=== PATIENT | male | born 1950 | race Caucasian/White ===

== ENCOUNTER 2022-02-06 02:01 | Emergency (ER) | payer SELFPAY ==
[2022-02-06] MEDS ORDERED: LEVALBUTEROL 1.25 MG/3 ML NEB ONE ×2 (02:18→02:31)
[2022-02-06] MEDS ORDERED: METHYLPREDNISOLONE 125 MG INJ ONE (02:31)
[2022-02-06 02:34] LABS: Arterial Blood Carboxyhemoglob 2.2 % (0-1.5); Blood Gas Oxyhemoglobin 95.9 % (94-97); Blood O2 Saturation 99.2 % (92-98.5)
[2022-02-06 02:55] LABS: Absolute Lymphocytes (CBC) 1.6 K/uL (0.7-4.9); Hematocrit 42.9 % (39.6-49.0); Lymphocytes % 27.3 % (15.3-44.8); MPV 7.6 fL (7.6-11.3)
[2022-02-06 03:01] LABS: Protime INR 0.91
[2022-02-06 03:15] LABS: Albumin 3.9 g/dL (3.4-5.0); Bilirubin Direct 0.2 mg/dL (0-0.2); Bilirubin Total 0.4 mg/dL (0.2-1.0); Protein, Total 7.4 g/dL (6.4-8.2)
[2022-02-06] MEDS ORDERED: FUROSEMIDE 40 MG/4 ML VIAL ONE (03:41)
[2022-02-06] MEDS ORDERED: Levofloxacin500mg IV 500 MG/100 ML BAG IV ONE (03:41)
[2022-02-06] MEDS ORDERED: MORPHINE 4 MG/ML SYR ONE (03:41)
[2022-02-06] MEDS ORDERED: ENOXAPARIN 100 MG/ML SYR SQ ONE (03:41)
[2022-02-06] MEDS ORDERED: NITROGLYCERIN 1 GM PKT TD ONE ×2 (04:06→04:17)
--- NOTE | 2022-02-06 05:10 | P.HP ---
Certification for Inpatient Patient admitted to: Inpatient With expected LOS: >2 Midnights Patient will require the following post-hospital care: None Practitioner: I am a practitioner with admitting privileges, knowledge of patient current condition, hospital course, and medical plan of care. Services: Services provided to patient in accordance with Admission requirements found in Title 42 Section 412.3 of the Code of Federal Regulations Patient History Date of Service: 02/06/22 Reason for admission: NSTEMI History of Present Illness: 71-year-old male with no known past medical history presents emergency room for chest pain, respiratory distress he reports that he was eating a for bed when he began to experience severe chest pain he described as tightness nonradiating with associated shortness of breath he presented to the emergency department respiratory stress was placed on BiPAP. Rest of his work-up revealed labs significant for elevated troponin, BNP, glucose, lactic acidosis he does have nonpitting edema of the lower extremities which she reports has been going on for "some time". Patient still with active chest pain has been given nitroglycerin, morphine, Lovenox in the emergency department, he was weaned off of BiPAP and is currently tolerating nasal cannula, currently pending CT PE protocol. ED prior wishes to admit for NSTEMI, chest pain - Past Medical/Surgical History -: None -: None Psychosocial/ Personal History: Lives at home with his - Family History Family History: Reviewed- Non-Contributory - Social History Smoking Status: Current every day smoker Counseled patient to stop smoking for: less than 10 minutes Smoking therapy provided: No Alcohol use: Yes CD- Drugs: No Caffeine use: Yes Place of Residence: Home Review of Systems 10-point ROS is otherwise unremarkable Respiratory: Shortness of Breath, SOB with Excertion Cardiovascular: Chest Pain, Edema Physical Examination - Physical Exam General: Alert, In no apparent distress, Oriented x3 HEENT: Atraumatic, PERRLA, Mucous membr. moist/pink, EOMI, Sclerae nonicteric Neck: Supple, No LAD, Without JVD or thyroid abnormality Respiratory: Crackles/rales Cardiovascular: Regular rate/rhythm, Normal S1 S2, Edema Capillary refill: <2 Seconds Gastrointestinal: Normal bowel sounds, No tenderness Musculoskeletal: No tenderness Integumentary: No rashes Neurological: Normal speech, Normal strength at 5/5 x4 extr, Normal tone, Normal affect - Studies Laboratory Data (last 24 hrs) 02/06/22 02:30: PT 10.0, INR 0.91, APTT 29.7 02/06/22 02:30: WBC 5.9, Hgb 14.6, Hct 42.9, Plt Count 223 02/06/22 02:30: Sodium 135 L, Potassium 4.0, BUN 14, Creatinine 1.15, Glucose 411 H*, Magnesium 2.0, Total Bilirubin 0.4, AST 33, ALT 25, Alkaline Phosphatase 138 H Microbiology Data (last 24 hrs): 02/06/22 02:33 Nasopharnyx Influenza Type A Antigen Screen - Final 02/06/22 02:33 Nasopharnyx Influenza Type B Antigen Screen - Final Assessment and Plan - Plan Assessment: Chest pain, NSTEMI Hyperglycemia suspect underlying diabetes mellitus type 2 Hypertension Plan: Chest pain, NSTEMI: Cardiology consulted, trend troponins likely some degree of CHF patient with edema of lower extremities elevated BNP given Lasix in the ER. Continue with aspirin, statin, Plavix, morphine/nitro, Lasix. Echocardiogram ordered. Appreciate further input from cardiology Hyperglycemia suspect underlying diabetes mellitus type 2: Initial glucose 411 patient denies any history of diabetes does not take any medications. Will obtain A1c placed on moderate sliding scale for time being. Hypertension: No known history suspect underlying primary hypertension we will provide with metoprolol adjust as needed. DVT PPX: Full dose Lovenox Code status: Full code Discharge Plan: Home Plan to discharge in: 72 Hours - Advance Directives Does patient have a Living Will: No Does patient have a Durable POA for Healthcare: No - Code Status/Comfort Care Code Status Assessed: Yes (Full code) Critical Care: No Time Spent Managing Pts Care (In Minutes): 55
[2022-02-06] MEDS ORDERED: INSULIN -REGULAR HUMAN 50 UNIT/0.5 ML ML ONE (05:12)
[2022-02-06] MEDS ORDERED: HYDROMORPHONE HCL 0.5 MG/0.5 ML INJ ONE (05:26)
[2022-02-06] MEDS ORDERED: ONDANSETRON 4 MG/2 ML VIAL ONE (05:26)
--- NOTE | 2022-02-06 05:28 | ER ---
Nurse's Notes [facility] Name: Austin Carranza Age: 71 yrs Sex: Male : 1950 Arrival Date: 02/06/2022 Time: 02:03 Bed 5 Private MD: Diagnosis: Subsequent non-ST elevation (NSTEMI) myocardial infarction;Acute pulmonary edema;Hypoxemia Presentation: 02/06 02:14 Chief complaint: Patient states: he started having difficulty breathing approx 2 hours bb ago with chest pain. Coronavirus screen: difficulty breathing, Client presents with at least one sign or symptom that may indicate coronavirus-19. Standard/surgical mask placed on the client. Ebola Screen: No symptoms or risks identified at this time. Initial Sepsis Screen: Does the patient meet any 2 criteria? No. Patient's initial sepsis screen is negative. Does the patient have a suspected source of infection? No. Patient's initial sepsis screen is negative. Risk Assessment: Do you want to hurt yourself or someone else? Patient reports no desire to harm self or others. Onset of symptoms was February 06, 2022. 02:14 Method Of Arrival: Wheelchair bb 02:14 Acuity: STEFFANY 2 bb Historical: - Allergies: 08:00 Levaquin; jl7 08:00 Morphine; jl7 - Home Meds: 02:15 None [Active]; bb - PMHx: 02:15 None; bb - PSHx: 02:15 None; bb - Immunization history:: Client reports receiving the 2nd dose of the Covid vaccine, Moderna. - Social history:: Smoking status: Patient reports the use of cigarette tobacco products, smokes one pack cigarettes per day. - Family history:: not pertinent. - Hospitalizations: : No recent hospitalization is reported. Assessment: 02:10 General: Appears distressed, uncomfortable, Behavior is cooperative, anxious. Pain: jb4 Complains of pain in chest Pain does not radiate. Pain currently is 10 out of 10 on a pain scale. Neuro: Level of Consciousness is awake, alert, obeys commands, Oriented to person, place, time, situation. Cardiovascular: Patient's skin is warm and dry. Rhythm is sinus tachycardia. Respiratory: Airway is patent Respiratory effort is even, labored, pursed lip, Respiratory pattern is symmetrical, tachypnea Breath sounds with wheezes bilaterally. GI: No signs and/or symptoms were reported involving the gastrointestinal system. : No signs and/or symptoms were reported regarding the genitourinary system. EENT: No signs and/or symptoms were reported regarding the EENT system. Derm: Skin is intact, Skin is pink, warm \T\ dry. 03:00 Reassessment: Patient appears in no apparent distress at this time. Patient and/or jb4 family updated on plan of care and expected duration. Pain level reassessed. Patient is alert, oriented x 3, equal unlabored respirations, skin warm/dry/pink. 04:00 Reassessment: Patient appears in no apparent distress at this time. Patient and/or jb4 family updated on plan of care and expected duration. Pain level reassessed. Patient is alert, oriented x 3, equal unlabored respirations, skin warm/dry/pink. 05:00 Reassessment: Patient appears in no apparent distress at this time. Patient and/or jb4 family updated on plan of care and expected duration. Pain level reassessed. Patient is alert, oriented x 3, equal unlabored respirations, skin warm/dry/pink. 05:48 Reassessment: Patient appears in no apparent distress at this time. Patient and/or jb4 family updated on plan of care and expected duration. Pain level reassessed. Patient is alert, oriented x 3, equal unlabored respirations, skin warm/dry/pink. Pt states pain decreased to a 1-2/10, reports feeling much better at this time. 07:10 Reassessment: Patient appears in no apparent distress at this time. No changes from 7 previously documented assessment. Patient and/or family updated on plan of care and expected duration. Pain level reassessed. Patient is alert, oriented x 3, equal unlabored respirations, skin warm/dry/pink. Patient states feeling better. Pain: Complains of pain in mid-sternal area Pain does not radiate. Pain currently is 2 out of 10 on a pain scale. 08:26 Reassessment: EMS at bedside to transport pt. jl7 Vital Signs: 02:10 Temp 98.1(TE); jb4 02:14 BP 165 / 117; Pulse 132; Resp 40 S; Pulse Ox 89% on R/A; Weight 97.52 kg (R); Height 6 bb ft. 1 in. (185.42 cm) (R); Pain 10/10; 03:15 BP 122 / 83; Pulse 98; Resp 23; Pulse Ox 98% on BiPAP; jb4 04:06 BP 130 / 82; Pulse 97; Resp 26; Pulse Ox 100% on BVM; jb4 05:30 BP 107 / 69; Pulse 88; Resp 20; Pulse Ox 95% on 3 lpm NC; jb4 06:30 BP 107 / 65; Pulse 86; Resp 16; Pulse Ox 95% on 3 lpm NC; jb4 07:25 BP 108 / 68; Pulse 77; Resp 15; Pulse Ox 96% ; Pain 2/10; jl7 08:26 BP 94 / 66; Pulse 75; Resp 15; Pulse Ox 97% ; jl7 02:14 Body Mass Index 28.37 (97.52 kg, 185.42 cm) bb ED Course: 02:03 Patient arrived in ED. bp1 02:05 Adan Disla MD is Attending Physician. rn 02:15 Triage completed. bb 02:15 Arm band placed on Patient placed in an exam room, on a stretcher, on oxygen, on bb cardiac rn, on pulse oximetry. Patient Bipap ordered. EKG completed in triage. Results shown to MD. EKG completed in triage. Results shown to MD. 02:23 Manuel Rose, RN is Primary Nurse. jb4 02:39 Inserted saline lock: 18 gauge in left wrist, using aseptic technique. Blood collected. ds4 05:28 initiated a transfer with Rupali Grover from [facility]. mw2 06:[address] Disla with the Doctor from [facility]. mw2 06:18 XRAY Chest (1 view) In Process Unspecified. EDMS 06:44 connected the hospitalist [employer] for [facility] with Dr. Disla for patient transfer mw2 consultation. 07:08 administrative approval given by Rupali Grover/ Patient has been accepted to [facility] 5th Floor A512/ Dr. Reaves has accepted the patient in transfer/ Report to be called to [phone]. Administered Medications: 04:13 Discontinued: LevaQUIN (levofloxacin) 500 mg 100 ml IVPB once over 60 mins jb4 02:26 Drug: Xopenex (levalbuterol) (3) 1.25 mg Route: Inhalation; jb4 07:00 Follow up: Response: No adverse reaction jl7 02:30 Drug: SOLU-Medrol (methylPrednisoLONE) 125 mg Route: IVP; Site: left forearm; jb4 07:00 Follow up: Response: No adverse reaction jl7 03:45 Drug: LevaQUIN (levofloxacin) 500 mg Volume: 100 ml; Route: IVPB; Infused Over: 60 jb4 mins; Site: left forearm; 04:10 Follow up: Response: Adverse reaction, Physician notified; IV Status: Order to jb4 discontinue infusion; IV Intake: 37ml 03:46 Drug: Lasix (furosemide) 40 mg Route: IVP; Site: left antecubital; jb4 07:00 Follow up: Response: No adverse reaction jl7 03:46 Drug: Lovenox (enoxaparin) 1 mg/kg Route: Sub-Q; Site: left upper abdomen; jb4 07:00 Follow up: Response: No adverse reaction jl7 03:47 Drug: morphine 4 mg Route: IVP; Infused Over: 4 mins; Site: left forearm; jb4 08:28 Follow up: Response: pt reported itching at IV site when medication was administered jl7 04:05 Drug: Nitro-Bid (nitroglycerin) Ointment 2 % 0.5 inches Route: Transdermal; Site: jb4 anterior chest wall; 04:14 Drug: Nitroglycerin Ointment 2 % 0.5 inches Route: Transdermal; Site: anterior chest jb4 wall; 05:12 Drug: Insulin Regular Human 10 units {Co-Signature: [email or web address] (Karime Seymour RN).} Route: jb4 Sub-Q; Site: abdomen; 05:12 Follow up: Response: No adverse reaction jb4 05:26 Drug: Dilaudid (HYDROmorphone) 0.5 mg Route: IVP; Site: left forearm; lg3 05:26 Follow up: Response: No adverse reaction lg3 05:28 Drug: Zofran (Ondansetron) 4 mg Route: IVP; Site: left forearm; lg3 05:28 Follow up: Response: No adverse reaction lg3 07:01 Drug: Aspirin Chewable Tablet 324 mg Route: PO; lg3 07:01 Follow up: Response: No adverse reaction lg3 07:38 Drug: Zosyn (piperacillin-tazobactam) 3.375 grams Route: IVPB; Infused Over: 60 mins; jl7 Site: left forearm; 08:27 Follow up: IV Status: Infusion continued upon transfer jl7 Medication: 08:26 VIS not applicable for this client. jl7 Intake: 04:10 IV: 37ml; Total: 37ml. jb4 Outcome: 05:27 ER care complete, transfer ordered by MD. espinosa 08:29 Patient left the ED. jl7 Signatures: Dispatcher [employer] EDMS Shani Omalley, RN RN bb Adan Disla MD MD rn Swanson, Donovan ds4 Manuel Rose RN RN jb4 Thalia Mccord RN RN jl7 Misti Santana 2 Jenna Jimenes Lacie, RN RN lg3 Ana Quinn RN lg3 Corrections: (The following items were deleted from the chart) 08:01 02:15 Allergies: No Known Allergies; atilio jlBraulio
--- NOTE | 2022-02-06 05:28 | EDPHYS ---
Physician Documentation [facility] Name: Austin Carranza Age: 71 yrs Sex: Male : 1950 Arrival Date: 02/06/2022 Time: 02:03 Bed 5 Private MD: ED Physician Adan Disla HPI: 02/06 03:04 This 71 yrs old Male presents to ER via Wheelchair with complaints of Breathing rn Difficulty. 03:05 The patient has shortness of breath at rest. Onset: The symptoms/episode began/occurred rn 2 hour(s) ago. Duration: The symptoms are continuous. The patient's shortness of breath is aggravated by nothing, is alleviated by nothing. Associated signs and symptoms: Pertinent positives: chest pain, non-productive cough, Pertinent negatives: fever, hemoptysis. Severity of symptoms: At their worst the symptoms were moderate in the emergency department the symptoms are unchanged. The patient has not experienced similar symptoms in the past. The patient has not recently seen a physician. states no PMH but doesn't go to doctor. + long time smoker. Pt reports chest pain and sob. Feels like not getting enough air. Doesn't feel ill. Denies fever. . Historical: - Allergies: 08:00 Levaquin; jl7 08:00 Morphine; jl7 - Home Meds: 02:15 None [Active]; bb - PMHx: 02:15 None; bb - PSHx: 02:15 None; bb - Immunization history:: Client reports receiving the 2nd dose of the Covid vaccine, Moderna. - Social history:: Smoking status: Patient reports the use of cigarette tobacco products, smokes one pack cigarettes per day. - Family history:: not pertinent. - Hospitalizations: : No recent hospitalization is reported. ROS: 03:05 Constitutional: Negative for fever, chills, and weight loss, Eyes: Negative for injury, rn pain, redness, and discharge, Neck: Negative for injury, pain, and swelling, Cardiovascular: + chest pain Respiratory: + sob and cough Abdomen/GI: Negative for abdominal pain, nausea, vomiting, diarrhea, and constipation, MS/Extremity: Negative for injury and deformity, Skin: Negative for injury, rash, and discoloration, Neuro: Negative for headache, weakness, numbness, tingling, and seizure. Exam: 03:05 Constitutional: This is a well developed, well nourished patient who is awake, alert, rn moderate respiratory distress Head/Face: Normocephalic, atraumatic. ENT: no stridor Cardiovascular: Tachycardic, regular Respiratory: Moderate tachypnea with 3-4 word sentences. No wheezing but crackles bilaterally. Abdomen/GI: soft, non-tender Skin: Warm, dry, no cyanosis MS/ Extremity: Pulses equal, no cyanosis. Neuro: Awake and alert, GCS 15 Vital Signs: 02:10 Temp 98.1(TE); jb4 02:14 BP 165 / 117; Pulse 132; Resp 40 S; Pulse Ox 89% on R/A; Weight 97.52 kg (R); Height 6 bb ft. 1 in. (185.42 cm) (R); Pain 10/10; 03:15 BP 122 / 83; Pulse 98; Resp 23; Pulse Ox 98% on BiPAP; jb4 04:06 BP 130 / 82; Pulse 97; Resp 26; Pulse Ox 100% on BVM; jb4 05:30 BP 107 / 69; Pulse 88; Resp 20; Pulse Ox 95% on 3 lpm NC; jb4 06:30 BP 107 / 65; Pulse 86; Resp 16; Pulse Ox 95% on 3 lpm NC; jb4 07:25 BP 108 / 68; Pulse 77; Resp 15; Pulse Ox 96% ; Pain 2/10; jl7 08:26 BP 94 / 66; Pulse 75; Resp 15; Pulse Ox 97% ; jl7 02:14 Body Mass Index 28.37 (97.52 kg, 185.42 cm) bb MDM: 02:05 Patient medically screened. rn 04:53 Differential diagnosis: CHF exacerbation, Chronic Obstructive Pulmonary Disease rn Myocardial Infarction pneumonia, Pneumothorax pulmonary edema, Pulmonary Embolism Sepsis. Data reviewed: vital signs, nurses notes, lab test result(s), EKG, radiologic studies. 04:54 Counseling: I had a detailed discussion with the patient and/or guardian regarding: the rn historical points, exam findings, and any diagnostic results supporting the discharge/admit diagnosis, lab results, radiology results, the need for further work-up and treatment in the hospital. Response to treatment: the patient's symptoms have markedly improved after treatment, and as a result, I will admit patient. Admission orders: after a detailed discussion of the patient's condition and case, the admit orders are written by me. 05:11 ED course: Abx initially ordered for possible pneumonia and elevated lactate. CT chest rn reveals more pulmonary edema and not pneumonia, xray images still not processed 2/2 xray machine being down tonight, thus delay in radiology and diagnosis. . 05:25 ED course: Dr. Kuhn contacted, requests transfer for NSTEMI and pulmonary edema, no rn cath lab technologist available here. Transfer initiated to [facility]. . 06:14 ED course: Accepted for transfer to [facility]. PE protocol still not read, but rn no gross saddle or large vessel PE seen by me. Shows pulmonary edema and small bilateral pleural effusions. We have had radiology and PACS issues all night long.. 07:14 ED course: Repeat lactate improved. Elevated lactate likely related more to poor tissue rn perfusion from hypoxemia and cardiac insult. Fluids not given due to acute pulmonary edema with NSTEMI. Sepsis reevaluation complete. BP much improved after nitropaste, CP down to 1/10. Aspirin and lovenox given. NPO. Will continue to monitor BP and remove nitropaste if needed prior to transfer if drops pressure. . 02/06 02:13 Order name: BMP; Complete Time: 03: rn 02/06 02:13 Order name: Blood Culture Adult (2) rn 02/06 02:13 Order name: CBC with Diff; Complete Time: : rn 02/06 02:13 Order name: Hepatic Function; Complete Time: : rn 02/06 02:13 Order name: Magnesium; Complete Time: :02/06 02:13 Order name: NT PRO-BNP; Complete Time: : rn 02/06 02:13 Order name: PT-INR; Complete Time: :02/06 02:13 Order name: Ptt, Activated; Complete Time: : rn 02/06 02:13 Order name: Flu; Complete Time: 04:33 rn 02/06 02:13 Order name: SARS-COV-2 RT PCR (Document "Date of Onset" if Symptomatic); Complete Time: rn 03:02/06 02:13 Order name: Troponin High Sensitivity; Complete Time: :02/06 02:13 Order name: Lactate; Complete Time: : rn 02/06 02:35 Order name: ABG Arterial Blood Gas EDMS 02/06 05:48 Order name: Lactate Sepsis 2 HR Follow-up; Complete Time: 06:10 EDMS 02/06 02:06 Order name: XRAY Chest (1 view) rn 02/06 02:13 Order name: BIPAP rn 02/06 03:31 Order name: CT Chest For PE Angio rn 02/06 02:13 Order name: Call RT; Complete Time: 03:53 rn 02/06 02:13 Order name: EKG; Complete Time: 02:17 rn 02/06 02:13 Order name: Cardiac monitoring; Complete Time: 02:23 rn 02/06 02:13 Order name: EKG - Nurse/Tech; Complete Time: 02:23 rn 02/06 02:13 Order name: IV Saline Lock; Complete Time: 02: rn 02/06 02:13 Order name: Labs collected and sent; Complete Time: 02:39 rn 02/06 02:13 Order name: O2 Per Protocol; Complete Time: 02:23 rn 02/06 02:13 Order name: O2 Sat Monitoring; Complete Time: 02:23 rn 02/06 03:30 Order name: EKG; Complete Time: 03:30 rn 02/06 03:30 Order name: EKG - Nurse/Tech; Complete Time: 03:47 rn Administered Medications: 04:13 Discontinued: LevaQUIN (levofloxacin) 500 mg 100 ml IVPB once over 60 mins jb4 02:26 Drug: Xopenex (levalbuterol) (3) 1.25 mg Route: Inhalation; jb4 07:00 Follow up: Response: No adverse reaction jl7 02:30 Drug: SOLU-Medrol (methylPrednisoLONE) 125 mg Route: IVP; Site: left forearm; jb4 07:00 Follow up: Response: No adverse reaction jl7 03:45 Drug: LevaQUIN (levofloxacin) 500 mg Volume: 100 ml; Route: IVPB; Infused Over: 60 jb4 mins; Site: left forearm; 04:10 Follow up: Response: Adverse reaction, Physician notified; IV Status: Order to jb4 discontinue infusion; IV Intake: 37ml 03:46 Drug: Lasix (furosemide) 40 mg Route: IVP; Site: left antecubital; jb4 07:00 Follow up: Response: No adverse reaction jl7 03:46 Drug: Lovenox (enoxaparin) 1 mg/kg Route: Sub-Q; Site: left upper abdomen; jb4 07:00 Follow up: Response: No adverse reaction jl7 03:47 Drug: morphine 4 mg Route: IVP; Infused Over: 4 mins; Site: left forearm; jb4 08:28 Follow up: Response: pt reported itching at IV site when medication was administered jl7 04:05 Drug: Nitro-Bid (nitroglycerin) Ointment 2 % 0.5 inches Route: Transdermal; Site: jb4 anterior chest wall; 04:14 Drug: Nitroglycerin Ointment 2 % 0.5 inches Route: Transdermal; Site: anterior chest jb4 wall; 05:12 Drug: Insulin Regular Human 10 units {Co-Signature: [email or web address] (Karime Seymour RN).} Route: jb4 Sub-Q; Site: abdomen; 05:12 Follow up: Response: No adverse reaction 4 05:26 Drug: Dilaudid (HYDROmorphone) 0.5 mg Route: IVP; Site: left forearm; lg3 05:26 Follow up: Response: No adverse reaction lg3 05:28 Drug: Zofran (Ondansetron) 4 mg Route: IVP; Site: left forearm; lg3 05:28 Follow up: Response: No adverse reaction lg3 07:01 Drug: Aspirin Chewable Tablet 324 mg Route: PO; lg3 07:01 Follow up: Response: No adverse reaction lg3 07:38 Drug: Zosyn (piperacillin-tazobactam) 3.375 grams Route: IVPB; Infused Over: 60 mins; jl7 Site: left forearm; 08:27 Follow up: IV Status: Infusion continued upon transfer jl7 Disposition: 05:25 Critical Care:. 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 Total time: 40 rn minutes Signatures: Dispatcher [employer] EDShani Lin, RN Adan Sanchez MD MD rn Attema, Lee, BEHAVIORAL ASSISTANT-C BEHAVIORAL ASSISTANT-Cla1 Manuel Rose, RN RN jb4 Thalia Mccord RN RN jl7 Jenna Jimenes Lacie, RN RN lg3 Karime Seymour RN lg3 Corrections: (The following items were deleted from the chart) 07:05 05:27 Dr. jessú tejada 07:05 05:27 [facility] rn mallory 07:16 07:14 ED course: Repeat lactate improved. Elevated lactate likely related more to poor rn tissue perfusion from hypoxemia and cardiac insult. Fluids not given due to acute pulmonary edema with NSTEMI. Sepsis reevaluation complete. . jesús 08:01 02:15 Allergies: No Known Allergies; atilio jl7 08:29 07:05 [facility] eb jl7
[2022-02-06] MEDS ORDERED: ASPIRIN 81 MG CHEWABLE TABLET ONE (07:01)
[2022-02-06] MEDS ORDERED: NA CHLORIDE 0.9% 100 ML ONE (07:36)
[2022-02-06] MEDS ORDERED: PIPERACIL/TAZO 3.375 GM VIAL IV ONE (07:37)
[2022-02-06 08:42] VITALS: TEMP 98.1
[2022-02-06 08:54] VITALS: BP 94/66; O2SAT 97
--- NOTE | 2022-02-07 15:59 | RAD REPORT ---
CLINICAL HISTORY: 11 years Male, Cough CLINICAL HISTORY: None FINDINGS: No focal pulmonary opacities. No pleural abnormalities. Right basilar subsegmental atelect asis. Central vasculature is indistinct. IMPRESSION: Bibasilar subsegmental atelectasis and central pulmonary vascular congestion. Electronically signed by: Manuel Michelle DO 02/06/2022 6:23 AM CDT Due to temporary technical issues with the PACS/Fluency reporting system, reports are being signed by the in house radiologists without review as a courtesy to insure prompt reporting. The interpreting radiologist is fully responsible for the content of the report.
--- NOTE | 2022-02-07 16:02 | RAD REPORT ---
CLINICAL HISTORY: 71 years, Male, chest pain, dyspnea, hypoxia COMPARISON: None. TECHNIQUE: Axial images through the chest were performed after the administration of intravenous con trast using a pulmonary embolus protocol. MIPS were performed. This exam was performed according to our departmental dose-optimization program which includes use of Automated Exposure Control, adjustm ent of the mA and/or kV according to patient size and/or use of iterative reconstruction technique. FINDINGS: No pulmonary embolus is identified however the mid and distal branches of the pulmonary ar teries in both lower lobes are not well visualized due to motion artifact.. Thoracic aorta is unremarkable. Cardiac chambers are normal in size. Mild coronary calcifications. No pericardial effusion. Small dependent bilateral pleural effusions. A few ill-defined patchy groundglass opacities in both u pper lobes. Areas of subsegmental atelectasis in both lower lobes. The trachea and central airways ar e clear except for a few thin secretions at the level of the jessica. Soft tissues are unremarkable. No acute osseous findings. No acute abnormality within the visualized upper abdomen. IMPRESSION: Motion artifact limits evaluation of the mid and distal pulmonary artery branches most p ronounced in the lower lobes. No pulmonary emboli are identified. Small dependent bilateral pleural effusions with adjacent atelectasis. Small ill-defined patchy groundglass opacities in both upper lobes are indeterminant could be related to atelectasis edema or developing infection including atypical agents such as Covid 19. Thin secretions within the distal trachea at the level the jessica. Electronically signed by: Manuel Michelle DO 02/06/2022 6:22 AM CDT Due to temporary technical issues with the PACS/Fluency reporting system, reports are being signed by the in house radiologists without review as a courtesy to insure prompt reporting. The interpreting radiologist is fully responsible for the content of the report.
--- NOTE | 2022-02-08 12:22 | EKG ---
Test Date: 2022-02-06 Test Time: 02:14:40 Magnetic Tape Typewriter Operator: NII MEASUREMENT RESULTS: Intervals: Rate: 124 MT: 152 QRSD: 98 QT: 294 QTc: 422 [place]: P: 80 MT: 152 QRS: 8 T: 139 INTERPRETIVE STATEMENTS: Sinus tachycardia with occasional premature ventricular complexes Right atrial enlargement Anteroseptal infarct, age undetermined Marked ST abnormality, possible inferior subendocardial injury Abnormal ECG Compared to ECG 02/06/2022 02:12:25 Ventricular premature complex(es) now present Atrial abnormality now present Myocardial infarct finding still present ST (T wave) deviation still present Electronically Signed On 02-08-22 12:17:14 CDT by Rosendo Clarke
--- NOTE | 2022-02-08 12:22 | EKG ---
Test Date: 2022-02-06 Test Time: 03:35:14 Parquetry Floor Layer: RAJWINDER MEASUREMENT RESULTS: Intervals: Rate: 97 GA: 148 QRSD: 86 QT: 360 QTc: 457 [place]: P: 77 GA: 148 QRS: 12 T: 96 INTERPRETIVE STATEMENTS: Sinus rhythm with occasional premature ventricular complexes Possible Anteroseptal infarct, age undetermined Abnormal ECG Compared to ECG 02/06/2022 02:14:40 Sinus tachycardia no longer present Atrial abnormality no longer present ST (T wave) deviation no longer present Myocardial infarct finding still present Electronically Signed On 02-08-22 12:17:12 CDT by Rosendo Clarke
== END 2022-02-06 08:29 ==
LOC: ER 02:01 → UNDOADMIN 05:08 → ERHOLD 05:08 → ER 08:29
DX: I21.4 Non-ST elevation (NSTEMI) myocardial infarction (principal); I22.2 Subsequent non-ST elevation (NSTEMI) myocardial infarction; J81.0 Acute pulmonary edema; R09.02 Hypoxemia; Z72.0 Tobacco use; Z20.822 Contact with and (suspected) exposure to COVID-19; Z88.1 Allergy status to other antibiotic agents; Z88.5 Allergy status to narcotic agent
CPT/HCPCS: 36415; 71045; 71275; 80048; 80076; 82805; 83605; 83735; 83880; 84484; 85025; 85610; 85730; 87040; 87804; 93005; 94660; 96372; 99285; J1170; J1650; J1815; J1940; J2405; J2543; J2930; Q9967; U0003